=== PATIENT | female | born 1940 | race Caucasian/White ===

== ENCOUNTER 2018-03-22 20:10 | Emergency (ER) | payer OTHER ==
[~2018-03-22] VITALS: Ht 152.4 cm; Wt 66.7 kg
[~2018-03-22 20:10] MED LIST: CITALOPRAM10 M1 PO; LAC PO; LEVAQUIN750 MG PO; SIMVASTATIN10 M1 PO
[2018-03-22 20:31] VITALS: Ht 152.4 cm; Wt 66.7 kg
[2018-03-22 22:16] LABS: UA SPECIFIC GRAVITY >=1.030 (1.005-1.035); microscopic required? YES; urine erythrocyte NEGATIVE (NEGATIVE)
[2018-03-22 22:27] LABS: CALCIUM 8.8 mg/dL (8.5-10.1); CARBON DIOXIDE 23.1 mmol/L (21-32); CHLORIDE SERUM 104 mmol/L (98-107); CREATININE SERUM 0.8 mg/dL (0.6-1.0); GLUCOSE SERUM 162 mg/dL (74-106); POTASSIUM SERUM 3.6 mmol/L (3.5-5.1); SODIUM SERUM 139 mmol/L (136-145)
[2018-03-22 22:32] LABS: ALBUMIN 3.8 g/dL (3.4-5.0); ALKALINE PHOSPHATASE 113 U/L (46-116); ALT/SGPT 164 U/L (14-59); AMYLASE 39 U/L (25-115); AST/SGOT 297 U/L (15-37); BILIRUBIN TOTAL 1.95 mg/dL (0.20-1.00); LIPASE 109 IU/L (73-393); TOTAL PROTEIN, SERUM 7.3 g/dL (6.4-8.2)
[2018-03-22 22:34] LABS: BASOPHIL % 0.2 % (0-2); PLATELET COUNT 333 x10^3mcL (130-400)
[2018-03-22 22:36] LABS: RED CELL DISTRIBUTION WIDTH 15.1 % (11.5-14.5)
[2018-03-22 23:32] VITALS: BP 123/64
== END 2018-03-22 23:33 | disposition home or self-care (01) ==
LOC: ED 20:10
PROVIDERS: Emergency Medicine
DX: N39.0 Urinary tract infection, site not specified (principal); K21.9 Gastro-esophageal reflux disease without esophagitis; G43.A1 Cyclical vomiting, in migraine, intractable
CPT/HCPCS: 83880; C9113; J2765; J7030